=== PATIENT | female | born 1995 | race Caucasian/White ===

== ENCOUNTER 2023-09-02 16:58 | Emergency (ER) | payer OTHER, SELFPAY ==
--- NOTE | ~2023-09-02 | CT_ITS ---
EXAMINATION: CT brain wo con DATE: 09/02/2023 17:57 INDICATION: Dizziness, vision changes and paresthesias TECHNIQUE: Computed tomography (CT) of the head was performed without intravenous contrast. Sagittal and coronal reconstructions were performed. The mA was adjusted according to patient size. Iterative reconstruction technique was employed. The dose-length product was 529.67 mGy-cm. COMPARISON: None FINDINGS: No acute intracranial hemorrhage, acute infarction or abnormal extra axial fluid collection. Ventricl es are normal and symmetric. No mass/mass effect. The orbits, paranasal sinuses and mastoid air cells are normal. IMPRESSION: 1. Normal head CT. Reviewed, dictated and finalized at location A. IMPRESSION: 1. Normal head CT.
--- NOTE | ~2023-09-02 | CT_ITS ---
EXAMINATION: CT lumbar spine wo con DATE: 09/02/2023 17:58 INDICATION: Low back pain. Herniated disc. TECHNIQUE: Computed tomography (CT) of the lumbar spine was performed without intravenous contrast. A utomated exposure control and iterative reconstruction technique were employed. The dose-length produ ct was 1221.21 mGy-cm. COMPARISON: None FINDINGS: 7 degrees lumbar levocurvature. 3 mm retrolisthesis L5 on S1.. Vertebral body heights are normal. Mil d to moderate disc height loss with some vacuum phenomena at L4-L5. Disc bulge at L4-L5 with suggesti on of an additional superimposed large left paracentral disc extrusion extending up to 1.5 cm caudal to the level of the superior endplate of L5 and which appears to significantly narrow the left latera l recess along the course of the traversing left L5 nerve root. There is likely at least mild and pot entially moderate central canal stenosis at this level although assessment is significantly more limi prachi than with MRI. Remaining disc heights are normal. Additional mild disc bulge at L5-S1. There is m ultilevel mild bilateral facet osteoarthritis throughout the lumbar spine. Mild bilateral neural fora farooq stenosis at L4-5 and L5-S1. Mild osteoarthritis at the bilateral sacroiliac joints. Paravertebr al soft tissues are unremarkable. IMPRESSION: 1. Mild to moderate lower lumbar spondylosis most notable for what appears be a large left paracentra l disc extrusion at L4-L5 which likely significantly narrows the left lateral recess affecting the tr aversing left L5 nerve root. Correlate clinically for muscle weakness of great toe extension and sens ory change of the medial foot and great toe. Could consider MRI for further evaluation as clinically indicated. Reviewed, dictated and finalized at location A. IMPRESSION: 1. Mild to moderate lower lumbar spondylosis most notable for what appears be a large left paracentral disc extrusion at L4-L5 which likely significantly narr ows the left lateral recess affecting the traversing left L5 nerve root. Correl ate clinically for muscle weakness of great toe extension and sensory change of the medial foot and great toe. Could consider MRI for further evaluation as cl inically indicated.
[2023-09-02 17:24] VITALS: BP 142/112; PULSE 93; RESP 20; TEMP 36.3; O2SAT 100
--- NOTE | 2023-09-02 17:31 | ED.DIZZY ---
HPI - Dizziness General Chief Complaint: Dizziness <OSCAR Stinson Last Filed: 09/02/23 17:42> Stated Complaint: Dizziness, Vision changes <OSCAR Stinson Last Filed: 09/02/23 17:42> Time Seen by Provider: 09/02/23 17:31 <OSCAR Stinson Last Filed: 09/02/23 17:42> Focused HPI: Patient is a 28 y/o female who presents to the ED with multiple complaints. Patient reports having L sided blurry vision constantly over the past 2 weeks. Also reports nausea and dizziness intermittently for the past 2 weeks. Dizziness described as room-spinning, worse with sudden movements. Also c/o acute on chronic lower back pain, Hx of herniated disc. Sees orthopedics and pain management for this. Reportedly waiting for insurance to obtain epidural pain shot. She reports worsening pain over the past 1 month. Has recently been on steroids. Reports numbness and tingling from her breasts/ribs down to her feet constantly for the past 2 weeks. Reports saddle anesthesia for past 2 weeks. Denies incontinence, weakness, focal weakness, falls or new injury, syncope. GENERAL: Well-appearing, morbidly obese with BMI of 46.2, and in no acute distress. HEAD: Normocephalic, atraumatic. EYES: PERRL/EOMI conjunctiva clear. No nystagmus. CHEST: Clear to auscultation. ?No respiratory distress. HEART: Regular rate and rhythm.? NEURO: ?Alert and oriented x3. Equal logging worker strength. Strength 5/5 in upper and lower extremities bilaterally. No focal deficits. Patient screened in triage and initial orders placed.? ?Additional care and disposition to be based upon?diagnostic testing and treatment. <OSCAR Stinson Last Filed: 09/02/23 17:42> Source: patient <OSCAR Stinson Last Filed: 09/02/23 17:42> Mode of arrival: ambulatory <OSCAR Stinson Last Filed: 09/02/23 17:42> Limitations: no limitations <OSCAR Stinson Last Filed: 09/02/23 17:42> Related Data Allergies/Adverse Reactions: Allergies Allergy/AdvReac Type Severity Reaction Status Date / Time dicyclomine AdvReac Mild headaches Verified 09/02/23 17:30 <Ama Noe PA-C - Last Filed: 09/02/23 17:42> Review of Systems Review of Systems: Per ROS <Sury Young MD - Last Filed: 09/03/23 03:55> Exam Narrative: EXAMINATION OF ORGAN SYSTEMS/BODY AREAS: Constitutional: Vital signs per nursing GENERAL:[No acute distress, non-toxic appearing.] HEAD: Normal with no signs of head trauma. EYES: EOMI, conjunctiva normal ENT: Hearing grossly intact LUNGS: Nonlabored breathing. HEART: [Regular rate and rhythm] ABD: [Soft], [nontender to palpation] EXT: Normal range of motion upper and lower extremities, normal strength upper and lower extremities, ambulating with normal steady gait SKIN: [No rashes or lesions.] NEURO: [Alert and oriented x 3. No gross focal strength deficits.] Does report some slight tingling to her 4th and 5th digits of bilateral arms PSYCH: Normal affect <Sury Young MD - Last Filed: 09/03/23 03:55> Course Reevaluation(s) Reevaluation #1: Patient quite well appearing; pain has been improved from last few weeks. She is ambulating with normal gait. <Sury Young MD - Last Filed: 09/03/23 03:55> Vital Signs Vital signs: Vital Signs Temperature 97.4 F L 09/02/23 17:24 Pulse Rate 93 09/02/23 17:24 Respiratory Rate 20 09/02/23 17:24 Blood Pressure 142/112 H 09/02/23 17:24 Pulse Oximetry 100 09/02/23 17:24 Oxygen Delivery Room Air 09/02/23 17:24 Temperature 97.4 F L 09/02/23 17:24 Pulse Rate 73 09/02/23 23:56 Respiratory Rate 15 09/02/23 23:56 Blood Pressure 124/82 09/02/23 23:56 Pulse Oximetry 100 09/02/23 23:56 Oxygen Delivery Room Air 09/02/23 17:24 <Ama Noe PA-C - Last Filed: 09/02/23 17:42> Vital Signs Temperature 97.4 F L 09/02/23 17:24 Pulse Rate 93 05
[2023-09-02 18:21] VITALS: BP 141/90; PULSE 91
[2023-09-02] MEDS: MECLIZINE HCL 25 MG TABLET PO (18:21)
[2023-09-02 18:22] VITALS: BP 138/92; PULSE 91
[2023-09-02 18:24] VITALS: BP 151/101; PULSE 93
[2023-09-02 18:38] LABS: Basophils Absolute Auto 0.1 K/mm3 (0.0-0.1); Basophils Percent Auto 0.5 % (0.2-1.2); Eosinophils Percent Auto 0.2 % (0-4.4); Hematocrit 45.4 % (37.0-47.0); Hemoglobin 14.6 g/dL (12.0-15.0); Immature Granulocyte Absolute 0.03 K/mm3 (0.00-0.031); Immature Granulocyte Percent A 0.3 % (0-0.5); Lymphocytes Absolute Auto 2.73 K/mm3 (0.9-3.2); Lymphocytes Percent Auto 24.7 % (18.3-44.2); Mean Corpuscular HGB Conc 32.2 g/dl (32-36); Mean Corpuscular Hemoglobin 26.4 pg (26-34); Mean Corpuscular Volume 82.2 fl (80-100); Monocytes Absolute Auto 0.6 K/mm3 (0.1-0.6); Monocytes Percent Auto 5.8 % (2.6-8.5); Neutrophils Absolute Auto 7.6 K/mm3 (1.3-6.7); Neutrophils Percent Auto 68.5 % (45.5-73.1); Platelet Count Result 367 k/mm3 (150-375); Red Blood Count 5.52 M/mm3 (4.2-5.4); Red Cell Distribution Width 13.5 % (11.5-14.5); White Blood Count 11.1 K/mm3 (4.5-10.0)
[2023-09-02 18:47] LABS: Alanine Aminotransferase 17 U/L (6-35); Albumin Level 4.8 g/dL (3.5-5.1); Alkaline Phosphatase 117 U/L (38-126); Anion Gap 8 mmol/L (4-12); Aspartate Amino Transferase 18 U/L (14-36); Bilirubin,Total 0.5 mg/dL (0.2-1.3); Blood Urea Nitrogen 15 mg/dL (7-17); Calcium 9.9 mg/dL (8.4-10.2); Carbon Dioxide 25 mmol/L (22-30); Chloride 106 mmol/L (98-107); Estimated CRCL calculation 97 ml/min; Estimated Glomerular Filt Rate > 60; Glucose 97 mg/dL (65-110); Potassium 4.1 mmol/L (3.4-5.0); Sodium 139 mmol/L (137-145)
[2023-09-02 21:47] VITALS: BP 141/68; PULSE 98; RESP 15; O2SAT 99
[2023-09-02 23:56] VITALS: BP 124/82; PULSE 73; RESP 15; O2SAT 100
== END 2023-09-02 23:58 | disposition home or self-care (01) ==
PROVIDERS: Physician Assistant; Emergency Provider Emergency Medicine
DX: M54.50 Low back pain, unspecified (principal); G89.29 Other chronic pain; M47.816 Spondylosis without myelopathy or radiculopathy, lumbar region
CPT/HCPCS: 36415; 70450; 72131; 80053; 83735; 85025; 99284; A9270